=== PATIENT | female | born 1965 | race Caucasian/White ===

== ENCOUNTER 2016-12-20 10:17 | Emergency (ER) | payer SELFPAY ==
[2016-12-20 10:17] VITALS: BMI 31.1
[2016-12-20 10:28] VITALS: TEMP 98.7; O2SAT 99
[2016-12-20] MEDS ORDERED: Sodium Chloride 0.9% 1,000 ML IV STA (10:45)
[2016-12-20 11:16] LABS: BASO % 0.1 % (0.0-2.0); EOS # 0.1 K/uL (0.0-0.7); EOS % 0.5 % (0.0-4.0); HEMATOCRIT 42.7 % (34.0-47.0); LYMPH # 0.8 K/uL (1.0-4.3); LYMPH % 7.4 % (20.0-40.0); MEAN CELL VOLUME 83.5 fl (81.0-99.0); MEAN CORPUSCULAR HEMOGLOBIN 28.1 pg (27.0-31.0); MEAN CORPUSCULAR HGB CONC 33.7 g/dL (33.0-37.0); MEAN PLATELET VOLUME 9.5 fl (7.2-11.7); MONO # 0.3 K/uL (0.0-0.8); MONO % 2.8 % (0.0-10.0); NEUT # 9.6 K/uL (1.8-7.0); NEUT % 89.2 % (50.0-75.0); NRBC % 0.1 % (0.0-0.0); PLATELET COUNT 226 K/uL (130-400); WHITE BLOOD COUNT 10.8 K/uL (4.8-10.8)
[2016-12-20 11:22] LABS: RBC URINE 15 /hpf (0-3); URINE BACTERIA RARE (<OCC); URINE BILIRUBIN NEGATIVE (NEGATIVE); URINE BLOOD MODERATE (NEGATIVE); URINE COLOR YELLOW (YELLOW); URINE GLUCOSE (UA) NEG (Normal); URINE KETONE TRACE mg/dL (NEGATIVE); URINE LEUKOCYTE ESTERASE MOD Leu/uL (Negative); URINE PROTEIN 30 mg/dL (NEGATIVE); URINE UROBILINOGEN 0.2-1.0 mg/dL (0.2-1.0); WBC URINE 4 /hpf (0-5)
[2016-12-20 11:32] LABS: PARTIAL THROMBOPLASTIN TIME 31.9 Seconds (25.6-37.1)
[2016-12-20 11:34] LABS: ALB/GLOB RATIO 1.1 (1.0-2.1); ALKALINE PHOSPHATASE 152 U/L (38-126); ALT/SGPT 44 U/L (9-52); AST/SGOT 30 U/L (14-36); BILIRUBIN,TOTAL 0.5 mg/dl (0.2-1.3); BLOOD UREA NITROGEN 14 mg/dl (7-17); CARBON DIOXIDE 22 mmol/L (22-30); CHLORIDE 105 mmol/L (98-107); GFR AFRICAN-AMERICAN > 60; GLUCOSE,RANDOM 145 mg/dL (65-105); LIPASE 57 U/L (23-300); POTASSIUM 3.7 MMOL/L (3.6-5.0); SODIUM 143 mmol/l (132-148); TOTAL PROTEIN 8.7 G/DL (6.3-8.2)
[2016-12-20 14:13] LABS: EOSINOPHIL 1 % (0-7); NEUTROPHIL 88 % (42-75); TOTAL CELLS COUNTED 100
--- NOTE | 2016-12-20 15:03 | ED PDOC ---
HPI: Abdomen Time Seen by Provider: 12/20/16 10:36 Chief Complaint (Nursing): Abdominal Pain Chief Complaint (Provider): Abdominal Pain History Per: Patient History/Exam Limitations: no limitations (x) Onset/Duration Of Symptoms: Days (x2) Outside of [place] travel?: No Current Symptoms Are (Timing): Still Present Quality Of Discomfort: "Pain" Associated Symptoms: denies: Fever, Chest Pain Additional Complaint(s): 51 year old female presents to ED with complaints of abdominal pain x2 days and has a past medical history of cardiac disorders and DM (Type II). (+) nausea, vomiting, and diarrhea. (-) fever, chest pain, or SOB. PCP: Non CPH Past Medical History Reviewed: Historical Data, Nursing Documentation, Vital Signs Vital Signs: Last Vital Signs Temp 98.7 F 12/20/16 10:27 Pulse 89 12/20/16 15:13 Resp 18 12/20/16 15:13 BP 125/63 12/20/16 15:13 Pulse Ox 99 12/20/16 15:13 - Medical History PMH: Depression, HTN, Hypercholesterolemia, Hyperlipidemia, Migraine Denies: HIV, Chronic Kidney Disease - Surgical History Other surgeries: Hysterectomy - Family History Family History: States: [place], CAD, Diabetes, Hypertension - Home Medications Home Medications: Ambulatory Orders Medication Instructions Recorded Aspirin [Aspirin EC] 81 mg PO DAILY #0 ect 09/19/14 Atorvastatin [Lipitor] 40 mg PO DAILY #0 tab 09/19/14 Ergocalciferol (Vitamin D2) 50,000 unit PO Q7D #0 cap 09/19/14 [Vitamin D2] Fluticasone Nasal [Flonase] 2 spray MURALI DAILY PRN #0 spr 09/19/14 Lisinopril/Hydrochlorothiazide 1 tab PO DAILY #0 tab 09/19/14 [Lisinopril-Hctz 10-12.5 mg Tab] Loratadine [Claritin] 10 mg PO DAILY #0 tab 09/19/14 Meclizine Hydrochloride [Meclizine 12.5 mg PO BID #0 tab 09/19/14 HCl] Metoprolol Succinate XL [Toprol XL] 12.5 mg PO BID #0 tab 09/19/14 Paroxetine HCl [Paxil] 20 mg PO QAM #0 tab 09/19/14 Ranitidine HCl 150 mg PO BID #0 tab 09/19/14 SUMAtriptan succinate [Imitrex Tab] 100 mg PO DAILY PRN #0 tab 09/19/14 Famotidine [Pepcid] 20 mg PO BID #20 tab 12/20/16 Ondansetron [Zofran Odt] 4 mg PO Q8H PRN #15 odt 12/20/16 - Allergies Allergies/Adverse Reactions: Allergies Allergy/AdvReac Type Severity Reaction Status Date / Time No Known Allergies Allergy Verified 09/16/14 19:26 Review of Systems ROS Statement: Except As Marked, All Systems Reviewed And Found Negative Constitutional: Negative for: Fever Cardiovascular: Negative for: Chest Pain Respiratory: Negative for: Shortness of Breath Gastrointestinal: Positive for: Nausea, Vomiting, Abdominal Pain Physical Exam - Reviewed Nursing Documentation Reviewed: Yes Vital Signs Reviewed: Yes - Physical Exam Appears: Positive for: Non-toxic, No Acute Distress Head Exam: Positive for: ATRAUMATIC Skin: Positive for: Normal Color, Warm, Dry Eye Exam: Positive for: Normal appearance ENT: Positive for: Normal ENT Inspection Cardiovascular/Chest: Positive for: Regular Rate, Rhythm. Negative for: Murmur Respiratory: Positive for: Normal Breath Sounds. Negative for: Respiratory Distress Gastrointestinal/Abdominal: Positive for: Soft, Tenderness (epigastric tenderness). Negative for: Guarding, Rebound Back: Positive for: Normal Inspection Extremity: Positive for: Normal ROM. Negative for: Deformity Neurologic/Psych: Positive for: Alert, Oriented. Negative for: Motor/Sensory Deficits - Laboratory Results Result Diagrams: 12/20/16 11:00 12/20/16 11:00 - ECG Interpretation Of ECG: NSR @ 83, no ST-T changes. O2 Sat by Pulse Oximetry: 99 (RA) Pulse Ox Interpretation: Normal Medical Decision Making Medical Decision Makin Initial impression: gastroenteritis, gastritis, cholelithiasis Initial plan: * EKG * Labs * Lipase * PTT/PT * Morphine 2mg IV * NS IV * Zofran Inj 4mg IV * UA * US ABDOMEN * Re-eval 1517 Upon re-evaluation, patient is feeling much better and is medically stable and ready for discharge. Counseling has been provided and patient is in agreement. Return if symptoms persist or acutely worsen. Scribe Attestation: Documented by Gabbi Lake acting as a scribe for Keyla Briceno MD. MD Arredondo Attestation: All medical record entries made by the Maria Elena were at my direction and personally dictated by me. I have reviewed the chart and agree that the record accurately reflects my personal performance of the history, physical exam, medical decision making, and the department course for this patient. I have also personally directed, reviewed, and agree with the discharge instructions and disposition. Disposition - Clinical Impression Clinical Impression: Gastroenteritis - Patient ED Disposition Is Patient to be Admitted: No Counseled Patient/Family Regarding: Studies Performed, Diagnosis - Disposition Referrals: [facility] [Outside] [facility] [Outside] Disposition: Routine/Home Disposition Time: 15:01 Condition: STABLE Prescriptions: Famotidine [Pepcid] 20 mg PO BID #20 tab Ondansetron [Zofran Odt] 4 mg PO Q8H PRN #15 odt PRN Reason: Nausea/Vomiting Instructions: Gastroenteritis (ED) Print Language: POLISH
[2016-12-20 15:14] VITALS: BP 125/63; PULSE 89; RESP 18
--- NOTE | 2016-12-20 15:38 | US ---
HISTORY: Epigastric pain, vomiting COMPARISON: None. TECHNIQUE: Sonographic evaluation of the right upper quadrant of the abdomen. FINDINGS: LIVER: Measures approximately 16 cm in CC dimension. Smooth contour and normal echogenicity of the liver parenchyma. No mass. No intrahepatic bile duct dilatation. GALLBLADDER: Unremarkable. No gallstones. No evidence of pericholecystic fluid collection or sonographic Milton sign COMMON BILE DUCT: Measures 2.2 mm. No stones. No dilatation. PANCREAS: Unremarkable as visualized. Note that the distal pancreatic tail poorly seen due to body habitus and bowel gas. No mass. No ductal dilatation. RIGHT KIDNEY: Measures approximately 10.0 x 5.4 x 5.0 cm in length. Normal echogenicity. No calculus, mass, or hydronephrosis. AORTA: Not visualized due to bowel gas and body habitus. IVC: Unremarkable. OTHER FINDINGS: None . IMPRESSION: Findings consistent with fatty hepatic infiltration.
--- NOTE | 2016-12-21 16:50 | CARD ---
APPROVED REPORT EKG Measurement Heart [id number] <Conclusion> Normal sinus rhythm Possible Left atrial enlargement Cannot rule out Inferior infarct, age undetermined Abnormal ECG
== END 2016-12-20 15:37 | disposition home or self-care (01) ==
LOC: H.ER 10:17
DX: K52.9 Noninfective gastroenteritis and colitis, unspecified (principal); R11.2 Nausea with vomiting, unspecified; E11.9 Type 2 diabetes mellitus without complications; I10 Essential (primary) hypertension
CPT/HCPCS: 76705; 80053; 81003; 81025; 83690; 85025; 85610; 85730; 93005; 96360; 99283; J2270; J2405; J7040

== ENCOUNTER 2017-04-23 20:07 | Observation (INO) | payer OTHER ==
[2017-04-23 20:08] VITALS: BMI 31.1
--- NOTE | 2017-04-23 20:43 | ED PDOC ---
HPI: Chest Pain Time Seen by Provider: 04/23/17 20:29 Chief Complaint (Nursing): Chest Pain History Per: Patient History/Exam Limitations: no limitations Current Symptoms Are (Timing): Still Present Quality: Tightness Associated Symptoms: Nausea Additional Complaint(s): Hx of CAD, DE, HTN, HLD, DM p/w CP, states it started 1-2 hours ago while at rest, states that she often gets pain in her chest when she is "pre- occupied". States she also has bilateral upper back pain. No diaphoresis. States pain is worse when she takes in a deep breath. No recent travel, immobilization, surgery. - Risk Factors TAD Risk Factors: Pos: Hypertension Past Medical History Reviewed: Historical Data, Nursing Documentation, Vital Signs Vital Signs: Last Vital Signs Temp 98.7 F 04/23/17 20:17 Pulse 82 04/23/17 20:17 Resp 20 04/23/17 20:17 BP 148/109 H 04/23/17 20:17 Pulse Ox 99 04/23/17 20:47 - Medical History PMH: Depression, HTN, Hypercholesterolemia, Hyperlipidemia, Migraine Denies: HIV, Chronic Kidney Disease - Family History Family History: States: [place], CAD, Diabetes, Hypertension - Home Medications Home Medications: Ambulatory Orders Medication Instructions Recorded Aspirin [Aspirin EC] 81 mg PO DAILY #0 ect 09/19/14 Atorvastatin [Lipitor] 40 mg PO DAILY #0 tab 09/19/14 Ergocalciferol (Vitamin D2) 50,000 unit PO Q7D #0 cap 09/19/14 [Vitamin D2] Fluticasone Nasal [Flonase] 2 spray MURALI DAILY PRN #0 spr 09/19/14 Lisinopril/Hydrochlorothiazide 1 tab PO DAILY #0 tab 09/19/14 [Lisinopril-Hctz 10-12.5 mg Tab] Loratadine [Claritin] 10 mg PO DAILY #0 tab 09/19/14 Meclizine Hydrochloride [Meclizine 12.5 mg PO BID #0 tab 09/19/14 HCl] Metoprolol Succinate XL [Toprol XL] 12.5 mg PO BID #0 tab 09/19/14 Paroxetine HCl [Paxil] 20 mg PO QAM #0 tab 09/19/14 Ranitidine HCl 150 mg PO BID #0 tab 09/19/14 SUMAtriptan succinate [Imitrex Tab] 100 mg PO DAILY PRN #0 tab 09/19/14 Famotidine [Pepcid] 20 mg PO BID #20 tab 12/20/16 Ondansetron [Zofran Odt] 4 mg PO Q8H PRN #15 odt 12/20/16 - Allergies Allergies/Adverse Reactions: Allergies Allergy/AdvReac Type Severity Reaction Status Date / Time No Known Allergies Allergy Verified 09/16/14 19:26 RAND Risk Score for UA/NSTEMI - RAND Risk Score Age > 64: NO 3 or more CAD Risk Factors: YES Aspirin use in past 7 days: YES EKG ST changes greater than 0.5mm: NO RAND Score: 2 Risk %: 8% Curb-65 Severity Score - CURB-65 Severity Score Confusion: No Bun >19mg/dl (>7mmol/L): No Respiratory Rate greater than/equal to 30: No Systolic BP <90 or Diastolic BP less than/equal 60mmHg: No Age >64: No Curb-65 Score: 0 Percentage 30-day mortality: 0.6% Wells Criteria for PE - Wells Criteria for Pulmonary Embolism Clinical Signs and Symptoms of DVT: No P.E is #1 Diagnosis, or Equally Likely: No Heart Rate >100: No Immobilization at least 3 days;Surgery previous 4 weeks: No Previous, objectively diagnosed PE or DVT: No Hemoptysis: No Malignancy w/treatment within 6 months, or palliative: No Total Score: 0 Review of Systems ROS Statement: Except As Marked, All Systems Reviewed And Found Negative Cardiovascular: Positive for: Chest Pain Respiratory: Positive for: Shortness of Breath Physical Exam - Reviewed Nursing Documentation Reviewed: Yes Vital Signs Reviewed: Yes - Physical Exam Appears: Positive for: Well, Non-toxic, Uncomfortable Head Exam: Positive for: ATRAUMATIC, NORMAL INSPECTION, NORMOCEPHALIC Skin: Positive for: Normal Color, Warm, DRY Eye Exam: Positive for: EOMI, Normal appearance, PERRL ENT: Positive for: Normal ENT Inspection Neck: Positive for: Normal, Painless ROM Cardiovascular/Chest: Positive for: Regular Rate, Rhythm Respiratory: Positive for: CNT, Normal Breath Sounds Gastrointestinal/Abdominal: Positive for: Normal Exam, Bowel Sounds, Soft Back: Positive for: Normal Inspection Extremity: Positive for: Normal ROM Neurologic/Psych: Positive for: Alert, Oriented - Laboratory Results Result Diagrams: 04/23/17 20:43 04/23/17 20:43 - ECG ECG Rhythm: Positive for: Normal QRS, ST/T Changes (TWI ) O2 Sat by Pulse Oximetry: 99 Pulse Ox Interpretation: Normal Medical Decision Making Medical Decision Making: Hx of CAD, DE, HTN, HLD, DM p/w CP and SOB -patient high risk for cardiac event, however story of CP nonexertional, EKG unchanged from 2015, no active STEMI -will check cardiac biomarkers and likely admit for Obs and r/o ACS 930PM: Pt. reports that she's feeling much better after toradol. Given hx of CAD, DE, and significant risk factors, will admit for r/o ACS. Will admit to Dr. Deluna. Disposition - Clinical Impression Clinical Impression: Chest pain - Patient ED Disposition Is Patient to be Admitted: Yes - Disposition Disposition Time: 21:30 Condition: STABLE Forms: [facility] (Egyptian)
[2017-04-23 20:55] LABS: BASO % 0.4 % (0.0-2.0); EOS # 0.2 K/uL (0.0-0.7); EOS % 1.6 % (0.0-4.0); HEMATOCRIT 36.9 % (34.0-47.0); LYMPH % 36.6 % (20.0-40.0); MEAN CELL VOLUME 84.2 fl (81.0-99.0); MEAN CORPUSCULAR HEMOGLOBIN 28.1 pg (27.0-31.0); MEAN CORPUSCULAR HGB CONC 33.4 g/dL (33.0-37.0); MEAN PLATELET VOLUME 9.2 fl (7.2-11.7); MONO # 0.4 K/uL (0.0-0.8); MONO % 3.9 % (0.0-10.0); NEUT # 6.3 K/uL (1.8-7.0); NEUT % 57.5 % (50.0-75.0); NRBC % 0.1 % (0.0-0.0); RED CELL DISTRIBUTION WIDTH 13.7 % (11.5-14.5)
[2017-04-23 21:16] LABS: PARTIAL THROMBOPLASTIN TIME 33.7 Seconds (25.6-37.1)
[2017-04-23 21:18] LABS: BLOOD UREA NITROGEN 12 mg/dl (7-17); CALCIUM 9.7 mg/dL (8.4-10.2); CARBON DIOXIDE 29 mmol/L (22-30); CHLORIDE 104 mmol/L (98-107); GFR AFRICAN-AMERICAN > 60; GLUCOSE,RANDOM 164 mg/dL (65-105); POTASSIUM 4.1 MMOL/L (3.6-5.0); SODIUM 143 mmol/l (132-148)
--- NOTE | 2017-04-23 22:32 | CP.PCM.HP ---
History of Present Illness - History of Present Illness History of Present Illness: PCP: None Chief Complaint: Chest Pain The patient was seen and examined in the ED HPI: 51 years old [place]ian female with hx of HTN, HLD, DM and family hx of CAD comes with 2 hours of sharp, continuous left chest pain , radiating to the left shoulder and left back and increases with respiration and on attempting to sit up from a lying position and began while she was cooking. She took no medication for this pain. No nausea, vomits, diaphoresis, headache nor dizziness. PMH: Depression; HTN; HLD; Migraine; DM II PSH: Hysterectomy SH: Never smoked; No Alcohol nor Illegal drug use; Live with her FH: States: [place], CAD, Diabetes, Hypertension Allergies: NKDA Medication: Not taking medications at present. Present on Admission - Present on Admission Any Indicators Present on Admission: No History of DVT/PE: No History of Uncontrolled Diabetes: No Urinary Catheter: No Decubitus Ulcer Present: No Review of Systems - Constitutional Constitutional: absent: Anorexia, Chills, Fever, Headache, Night Sweats - EENT Eyes: Requires Corrective Lenses. absent: Diplopia, Floaters, Photophobia, Sees Flashes Ears: absent: Decreased Hearing, Ear Discharge, Ear Pain, Dizziness Nose/Mouth/Throat: absent: Epistaxis, Nasal Congestion, Nasal Discharge - Cardiovascular Cardiovascular: Chest Pain, Dyspnea. absent: Edema, Leg Edema - Respiratory Respiratory: Dyspnea. absent: Cough - Gastrointestinal Gastrointestinal: absent: Abdominal Pain, Constipation, Diarrhea, Nausea, Vomiting - Genitourinary Genitourinary: absent: Dysuria, Flank Pain, Hematuria - Musculoskeletal Additional comments: Pain to both feet - Integumentary Integumentary: absent: Pruritus, Rash, Skin Ulcer, Sores, Striae, Swelling - Neurological Neurological: absent: Confusion, Dizziness, Focal Weakness, Headaches, Weakness - Psychiatric Psychiatric: Depression. absent: Anxiety, Panic Attacks - Endocrine Endocrine: absent: Palpitations, Polydipsia, Polyphagia, Polyuria - Hematologic/Lymphatic Hematologic: absent: Easy Bleeding, Easy Bruising Past Patient History - Infectious Disease Hx of Infectious Diseases: None - Past Medical History & Family History Past Medical History?: Yes - Past Social History Smoking Status: Never Smoked Chewing Tobacco Use: No Cigar Use: No Alcohol: None Drugs: Denies Home Situation {Lives}: With Family - CARDIAC Hx Hypercholesterolemia: Yes Hx Hypertension: Yes - PULMONARY Hx Respiratory Disorders: No - NEUROLOGICAL Hx Migraine: Yes - HEENT Hx HEENT Problems: No Other/Comment: vision-wears eyeglasses - RENAL Hx Chronic Kidney Disease: No - ENDOCRINE/METABOLIC Hx Endocrine Disorders: Yes Hx Diabetes Mellitus Type 2: Yes Other/Comment: IDDM - HEMATOLOGICAL/ONCOLOGICAL Hx Blood Disorders: No Hx Human Immunodeficiency Virus (HIV): No - INTEGUMENTARY Hx Dermatological Problems: No - MUSCULOSKELETAL/RHEUMATOLOGICAL Hx Musculoskeletal Disorders: No Hx Falls: No - GASTROINTESTINAL Hx Gastrointestinal Disorders: No - GENITOURINARY/GYNECOLOGICAL Hx Genitourinary Disorders: No - PSYCHIATRIC Hx Depression: Yes - SURGICAL HISTORY Hx Surgeries: Yes Hx Hysterectomy: Yes Other/Comment: HYSTERECTOMY 2004 - ANESTHESIA Hx Anesthesia: Yes Hx Anesthesia Reactions: No Hx Malignant Hyperthermia: No Meds Allergies/Adverse Reactions: Allergies Allergy/AdvReac Type Severity Reaction Status Date / Time No Known Allergies Allergy Verified 09/16/14 19:26 Physical Exam - Head Exam Head Exam: ATRAUMATIC, NORMAL INSPECTION, NORMOCEPHALIC - Eye Exam Eye Exam: EOMI, Normal appearance Pupil Exam: NORMAL ACCOMODATION, PERRL - ENT Exam ENT Exam: Mucous Membranes Moist, Normal Exam - Neck Exam Neck exam: Positive for: Full Rom, Normal Inspection. Negative for: Lymphadenopathy, Tenderness - Respiratory Exam Respiratory Exam: Clear to Auscultation Bilateral. absent: Rales, Rhonchi, Wheezes Additional comments: Chest wall with no sign of trauma, but painful on palpation and on elevation of the left arm. - Cardiovascular Exam Cardiovascular Exam: REGULAR RHYTHM, RRR, +S1, +S2. absent: Gallop, JVD - GI/Abdominal Exam GI & Abdominal Exam: Normal Bowel Sounds, Soft. absent: Organomegaly, Tenderness - Rectal Exam Rectal Exam: Deferred - Back Exam Back exam: NORMAL INSPECTION Additional comments: Pain to bilateral upper back on palpation - Neurological Exam Neurological exam: Alert, CN II-XII Intact, Oriented x3, Reflexes Normal - Psychiatric Exam Psychiatric exam: Normal Affect, Normal Mood - Skin Skin Exam: Dry, Intact, Normal Color, Warm Results - Vital Signs Recent Vital Signs: Last Vital Signs Temp 98.7 F 04/23/17 20:17 Pulse 79 04/23/17 22:25 Resp 18 04/23/17 22:25 BP 143/78 04/23/17 22:25 Pulse Ox 98 04/23/17 22:25 - Labs Result Diagrams: 04/23/17 20:43 04/23/17 20:43 Labs: Laboratory Results - last 24 hr 04/23/17 04/23/17 04/23/17 20:43 20:43 20:43 WBC 11.0 H RBC 4.38 Hgb 12.3 D Hct 36.9 MCV 84.2 MCH 28.1 MCHC 33.4 RDW 13.7 Plt Count 210 MPV 9.2 Neut % (Auto) 57.5 Lymph % (Auto) 36.6 [place] % (Auto) 3.9 Eos % (Auto) 1.6 Baso % (Auto) 0.4 Neut # 6.3 Lymph # 4.0 [place] # 0.4 Eos # 0.2 Baso # 0.0 PT 11.4 INR 1.0 APTT 33.7 Sodium 143 Potassium 4.1 Chloride 104 Carbon Dioxide 29 Anion Gap 14 BUN 12 Creatinine 0.7 Est GFR ( Amer) > 60 Est GFR (Non-Af Amer) > 60 Random Glucose 164 H Calcium 9.7 Troponin I < 0.0120 - EKG Data EKG comments: NSR 83/min no change from EKG of 12/20/16 - Imaging and Cardiology CT scan - chest Additional comment: No infiltrate Assessment & Plan - Assessment and Plan (Free Text) Assessment: #. Chest Pain #. HTN #. DM II #. Hx of Depression Plan: 51 years old [place] female with hx of HTN, HLD, DM and family hx of CAD comes with 2 hours of sharp, continuous left chest pain , radiating to the left shoulder and left back and increases with respiration and on attempting to sit up from a lying position and began while she was cooking. She took no medication for this pain. No nausea, vomits, diaphoresis, headache nor dizziness. #. Chest Pain, Pleuritic, reproducible in patient with family hx of heart disease. r/o ACS - Consult Cardiology Dr Cueto - Serial Troponin - serial EKG - ECHO for Wall motion - pain management with Toradol - ASA - Lipitor - Metoprolol #. HTN controlled - Metoprolol - follow blood Pressures #. DM II - Regular Insulin sliding scale according to Accucheck - HbA1c #. Stress Ulcer prophylaxis with Pepcid #. DVT Prophylaxis with Lovenox #. Code Status: Full - Date & Time Date: 04/23/17 Time: 22:32
[2017-04-24] MEDS ORDERED: Enoxaparin 40 mg Syringe SC SCH (09:00)
[2017-04-24 09:10] LABS: THYROID STIMULATING HORMONE 2.96 mIU/ML (0.46-4.68)
--- NOTE | 2017-04-24 10:14 | CP.PCM.DIS ---
Provider - Provider Date of Admission: 04/23/17 21:37 Attending physician: Kobe Deluna Time Spent in preparation of Discharge (in minutes): 15 Hospital Course - Lab Results Lab Results: Most Recent Lab Values WBC 11.0 K/uL (4.8-10.8) H 04/23/17 20:43 RBC 4.38 Mil/uL (3.80-5.20) 04/23/17 20:43 Hgb 12.3 g/dL (12.0-16.0) D 04/23/17 20:43 Hct 36.9 % (34.0-47.0) 04/23/17 20:43 MCV 84.2 fl (81.0-99.0) 04/23/17 20:43 MCH 28.1 pg (27.0-31.0) 04/23/17 20:43 MCHC 33.4 g/dL (33.0-37.0) 04/23/17 20:43 RDW 13.7 % (11.5-14.5) 04/23/17 20:43 Plt Count 210 K/uL (130-400) 04/23/17 20:43 MPV 9.2 fl (7.2-11.7) 04/23/17 20:43 Neut % (Auto) 57.5 % (50.0-75.0) 04/23/17 20:43 Lymph % (Auto) 36.6 % (20.0-40.0) 04/23/17 20:43 [place] % (Auto) 3.9 % (0.0-10.0) 04/23/17 20:43 Eos % (Auto) 1.6 % (0.0-4.0) 04/23/17 20:43 Baso % (Auto) 0.4 % (0.0-2.0) 04/23/17 20:43 Neut # 6.3 K/uL (1.8-7.0) 04/23/17 20:43 Lymph # 4.0 K/uL (1.0-4.3) 04/23/17 20:43 [place] # 0.4 K/uL (0.0-0.8) 04/23/17 20:43 Eos # 0.2 K/uL (0.0-0.7) 04/23/17 20:43 Baso # 0.0 K/uL (0.0-0.2) 04/23/17 20:43 PT 11.4 Seconds (9.8-13.1) 04/23/17 20:43 INR 1.0 (0.9-1.2) 04/23/17 20:43 APTT 33.7 Seconds (25.6-37.1) 04/23/17 20:43 Sodium 143 mmol/l (132-148) 04/23/17 20:43 Potassium 4.1 MMOL/L (3.6-5.0) 04/23/17 20:43 Chloride 104 mmol/L (98-107) 04/23/17 20:43 Carbon Dioxide 29 mmol/L (22-30) 04/23/17 20:43 Anion Gap 14 (10-20) 04/23/17 20:43 BUN 12 mg/dl (7-17) 04/23/17 20:43 Creatinine 0.7 mg/dL (0.7-1.2) 04/23/17 20:43 Est GFR ( Amer) > 60 04/23/17 20:43 Est GFR (Non-Af Amer) > 60 04/23/17 20:43 Random Glucose 164 mg/dL (65-105) H 04/23/17 20:43 Calcium 9.7 mg/dL (8.4-10.2) 04/23/17 20:43 Troponin I < 0.0120 ng/mL (0.00-0.120) 04/24/17 09:15 Triglycerides 131 mg/DL (0-149) D 04/24/17 06:00 Cholesterol 186 mg/dL (0-199) 04/24/17 06:00 LDL Cholesterol Direct 142 mg/dL (0-129) H 04/24/17 06:00 HDL Cholesterol 32 MG/DL (30-70) 04/24/17 06:00 TSH 3rd Generation 2.96 mIU/ML (0.46-4.68) 04/24/17 06:00 - Hospital Course Hospital Course: 51 years old [place] female with hx of HTN, HLD ,family hx of CAD, not compliant with medications( has not been taking any meds for more than 6 months ) , not following with any physician or clinic, came with 2 hours of sharp, continuous left chest pain , radiating to the left shoulder and left back and increased with respiration and on attempting to sit up from a lying position and began while she was cooking. She took no medication for this pain. No nausea , vomits, diaphoresis, headache nor dizziness. She wsa placed under observation in telemetry for chest pain to rule out ACs. Troponins were cycled and reported negative x 3. EKG showed no St-T wave changes and Echo showed normal EF and wall motion. patient is hemodynamically stable and chest pain resolved ACs ruled out. Will discharge patient home Counselled on compliance with treatment for her HTN and dyslipidemia.Advised patient to follow up with [facility] . Counselled on diet and exercise will discharge patient home Prescriptions for ASa 81 mg po QD, Lisinopril 5 mg pO QD and Atorvastatin 20 mg po daily provided. all questions answered. Patient agrees with plan of discharge. Dx atypical chest pain Hypertension dyslipidemia overweight BMI 36 Discharge Exam - Head Exam Head Exam: ATRAUMATIC, NORMAL INSPECTION, NORMOCEPHALIC - Eye Exam Eye Exam: EOMI, Normal appearance, PERRL Pupil Exam: NORMAL ACCOMODATION, PERRL - ENT Exam ENT Exam: Mucous Membranes Moist, Normal Exam - Neck Exam Neck exam: Full Rom, Normal Inspection - Respiratory Exam Respiratory Exam: Clear to PA & Lateral, NORMAL BREATHING PATTERN. absent: Rales, Rhonchi, Wheezes - Cardiovascular Exam Cardiovascular Exam: REGULAR RHYTHM, RRR, +S1, +S2. absent: JVD - GI/Abdominal Exam GI & Abdominal Exam: Normal Bowel Sounds, Soft. absent: Distended, Guarding, Rebound, Tenderness - Rectal Exam Rectal Exam: Deferred - Extremities Exam Extremities exam: normal capillary refill, normal inspection, pedal pulses present - Back Exam Back exam: NORMAL INSPECTION - Neurological Exam Neurological exam: Alert, CN II-XII Intact, Oriented x3, Reflexes Normal - Psychiatric Exam Psychiatric exam: Normal Affect, Normal Mood - Skin Skin Exam: Dry, Intact, Normal Color, Warm Discharge Plan - Discharge Medications Prescriptions: Aspirin 81 mg PO DAILY #30 tab.chew Atorvastatin [Lipitor] 20 mg PO DAILY #30 tab Lisinopril [Prinivil] 5 mg PO DAILY #30 tablet - Follow Up Plan Condition: STABLE Disposition: HOME/ ROUTINE Patient education suggested?: Yes Instructions: Chest Pain (DC) Referrals: [facility] [Outside]
--- NOTE | 2017-04-24 12:10 | CARD ---
APPROVED REPORT EXAM: Two-dimensional and M-mode echocardiogram with Doppler and color Doppler. Other Information Quality : GoodRhythm : NSR INDICATION Chest Pain 2D DIMENSIONS Left Atrium (2D)3.76 (1.6-4.0cm)IVSd1.11 (0.7-1.1cm) Aortic Root (2D)2.92 (2.0-3.7cm)LVDd4.01 (3.9-5.9cm) LVOT Diameter1.86 (1.8-2.4cm)PWd0.72 (0.7-1.1cm) IVSs1.51 (0.8-1.2cm)LVDs2.69 (2.5-4.0cm) FS (%) 33.0 %PWs1.07 (0.8-1.2cm) M-Mode DIMENSIONS Left Atrium (MM)3.59 (2.5-4.0cm)IVSd1.14 (0.7-1.1cm) Aortic Root3.02 (2.2-3.7cm)LVDd4.48 (4.0-5.6cm) Aortic Cusp Exc.1.39 (1.5-2.0cm)PWd1.21 (0.7-1.1cm) IVSs1.08 cmFS (%) 24 % LVDs3.40 (2.0-3.8cm)PWs1.40 cm Mitral Valve MV E Lnokbwxv45.6cm/sMV DECEL [id number] A Pimkmzau79.4cm/s MV LAQ82gsC/A ratio1.1MVA (PHT)4.69cm2 TDI Lateral E' Peak V9.94cm/sMedial E' Peak V9.37cm/sE/Lateral E'7.4 E/Medial E'7.9 Pulmonary Valve PV Peak Qcxuevzo05.1cm/s Tricuspid Valve TR Peak Zxyoedrg838kq/sRAP QCMFCEZT69wgPsCT Peak Gr.20mmHg [id number] LEFT VENTRICLE The left ventricle is normal size. There is normal left ventricular wall thickness. The left ventricular function is normal. The left ventricular ejection fraction is within the normal range. The Ejection Fraction is 60-65%. There is normal LV segmental wall motion. The left ventricular diastolic function is normal. No left ventricle thrombus noted on this study. There is no mass noted in the left ventricle. RIGHT VENTRICLE The right ventricle is normal size. There is normal right ventricular wall thickness. The right ventricular systolic function is normal. ATRIA The left atrium size is normal. The right atrium size is normal. The interatrial septum is intact with no evidence for an atrial septal defect. AORTIC VALVE The aortic valve is normal in structure and function. No aortic regurgitation is present. There is no aortic valvular stenosis. There is no aortic valvular vegetation. MITRAL VALVE The mitral valve is normal in structure and function. There is no evidence of mitral valve prolapse. There is no mitral valve stenosis. There is no mitral valve regurgitation noted. TRICUSPID VALVE The tricuspid valve is normal in structure and function. There is no tricuspid valve regurgitation noted. There is no tricuspid valve prolapse or vegetation. There is no tricuspid valve stenosis. PULMONIC VALVE The pulmonary valve is normal in structure and function. There is no pulmonic valvular regurgitation. There is no pulmonic valvular stenosis. GREAT VESSELS The aortic root is normal in size. The IVC is normal in size and collapses >50% with inspiration. PERICARDIAL EFFUSION The pericardium appears normal. There is no pleural effusion. <Conclusion> The left ventricle is normal size. The left ventricular function is normal. The left ventricular ejection fraction is within the normal range. The Ejection Fraction is 60-65%.
[2017-04-24 12:17] VITALS: BP 127/70; PULSE 65; RESP 20; TEMP 98.2; O2SAT 97
--- NOTE | 2017-04-24 12:22 | CARD ---
APPROVED REPORT EKG Measurement Heart [id number] VA [id number] [id number] <Conclusion> Normal sinus rhythm Nonspecific T wave abnormality Abnormal ECG
--- NOTE | 2017-04-24 13:03 | RAD ---
HISTORY: cp, sob COMPARISON: No prior. TECHNIQUE: Chest PA and lateral FINDINGS: LUNGS: No active pulmonary disease. PLEURA: No significant pleural effusion identified. No pneumothorax apparent. CARDIOVASCULAR: Normal. OSSEOUS STRUCTURES: No significant abnormalities. VISUALIZED UPPER ABDOMEN: Normal. OTHER FINDINGS: None. IMPRESSION: No active disease.
== END 2017-04-24 15:20 | disposition home or self-care (01) ==
LOC: H.ER 20:07 → H.ERHOLD 21:37 → H.TEL 23:30
PROVIDERS: ADMIT Internal Medicine; ATTEND Internal Medicine
DX: R07.89 Other chest pain (principal); E11.9 Type 2 diabetes mellitus without complications; E66.3 Overweight; Z68.36 Body mass index [BMI] 36.0-36.9, adult; E78.00 Pure hypercholesterolemia, unspecified; E78.5 Hyperlipidemia, unspecified; I10 Essential (primary) hypertension; I25.10 Atherosclerotic heart disease of native coronary artery without angina pectoris; Z79.4 Long term (current) use of insulin; Z79.82 Long term (current) use of aspirin; Z90.710 Acquired absence of both cervix and uterus; Z91.14 Patient's other noncompliance with medication regimen; F32.9 Major depressive disorder, single episode, unspecified; G43.909 Migraine, unspecified, not intractable, without status migrainosus; M54.6 Pain in thoracic spine
CPT/HCPCS: 36415; 71020; 80048; 80061; 81025; 82948; 84443; 84484; 85025; 85610; 85730; 93005; 93306; 96374; 99285; G0378; J1650; J1885

== ENCOUNTER 2018-01-10 17:56 | Emergency (ER) | payer OTHER, SELFPAY ==
[2018-01-10 17:56] VITALS: BMI 31.1
[2018-01-10] MEDS ORDERED: Sodium Chloride 0.9% 1,000 ML IV STA (19:39)
[2018-01-10 20:14] LABS: BASO % 0.3 % (0.0-2.0); EOS % 0.2 % (0.0-4.0); HEMOGLOBIN 13.1 g/dL (12.0-16.0); LYMPH % 20.5 % (20.0-40.0); MEAN CELL VOLUME 83.7 fl (81.0-99.0); MEAN CORPUSCULAR HEMOGLOBIN 27.9 pg (27.0-31.0); MEAN CORPUSCULAR HGB CONC 33.4 g/dL (33.0-37.0); MEAN PLATELET VOLUME 9.1 fl (7.2-11.7); MONO # 0.4 K/uL (0.0-0.8); MONO % 3.9 % (0.0-10.0); NEUT # 7.3 K/uL (1.8-7.0); NEUT % 75.1 % (50.0-75.0); RBC 4.7 Mil/uL (3.80-5.20); RED CELL DISTRIBUTION WIDTH 14.2 % (11.5-14.5); WHITE BLOOD COUNT 9.8 K/uL (4.8-10.8)
[2018-01-10 20:25] LABS: ALB/GLOB RATIO 1.2 (1.0-2.1); ALBUMIN 4.2 g/dL (3.5-5.0); ALT/SGPT 40 U/L (9-52); AST/SGOT 22 U/L (14-36); BLOOD UREA NITROGEN 13 mg/dl (7-17); CALCIUM 9.4 mg/dL (8.4-10.2); GFR AFRICAN-AMERICAN > 60; GFR NON-AFRICAN AMERICAN > 60; LIPASE 89 U/L (23-300)
[2018-01-10 20:31] LABS: SQUAMOUS EPITHIAL 25 /hpf (0-5); URINE BILIRUBIN SMALL (NEGATIVE); URINE BLOOD NEGATIVE (NEGATIVE); URINE CLARITY CLOUDY (Clear); URINE COLOR AMBER (YELLOW); URINE GLUCOSE (UA) NEG (Normal); URINE LEUKOCYTE ESTERASE TRACE Leu/uL (Negative); URINE PROTEIN 100 mg/dL (NEGATIVE)
--- NOTE | 2018-01-10 20:33 | ED PDOC ---
HPI: Abdomen Time Seen by Provider: 01/10/18 19:10 Chief Complaint (Nursing): Abdominal Pain Chief Complaint (Provider): Abdominal pain History Per: Patient History/Exam Limitations: no limitations Onset/Duration Of Symptoms: Days (1) Outside of [place] travel?: No Current Symptoms Are (Timing): Still Present Location Of Pain/Discomfort: Diffuse Quality Of Discomfort: Burning, Pressure Associated Symptoms: Fever (tactile), Nausea, Vomiting, Diarrhea. denies: Back Pain, Chest Pain, Constipation Additional History Per: Patient Additional Complaint(s): 52yo female with history of diabetes, hypertnesion, comes to ER with complaints of abdominal pain and associated nausea, vomiting, diarrhea, and a subjective fever. Patient describes the pain as a burning and pressure like sensation. She reports she has had over 10 episodes of non-bilious, non-bloody vomiting and over 10 episodes of watery, non-bloody diarrhea. She denies any black or bloody stools, recent antibiotics use, recent foreign travels. Otherwise, patient has no other medical complaints. PMD: Dr. Ros Bowling Past Medical History Reviewed: Historical Data, Nursing Documentation, Vital Signs Vital Signs: Last Vital Signs Temp 98.9 F 01/10/18 18:14 Pulse 110 H 01/10/18 18:14 Resp 20 01/10/18 18:14 BP 117/67 01/10/18 18:14 Pulse Ox 100 01/10/18 22:28 - Medical History PMH: CAD, Depression, HTN, Hypercholesterolemia, Hyperlipidemia, Migraine Denies: HIV, Chronic Kidney Disease - Surgical History Other surgeries: Hysterectomy - Family History Family History: States: [place], CAD, Diabetes, Hypertension - Living Arrangements Living Arrangements: With Family - Social History Current smoker - smoking cessation education provided: No - Home Medications Home Medications: Ambulatory Orders Medication Instructions Recorded Aspirin 81 mg PO DAILY #30 tab.chew 04/24/17 Atorvastatin [Lipitor] 20 mg PO DAILY #30 tab 04/24/17 Lisinopril [Prinivil] 5 mg PO DAILY #30 tablet 04/24/17 Ciprofloxacin [Cipro] 500 mg PO BID 7 Days tab 01/10/18 Famotidine [Pepcid] 20 mg PO BID #20 tab 01/10/18 metroNIDAZOLE [Flagyl] 500 mg PO BID 7 Days tab 01/10/18 - Allergies Allergies/Adverse Reactions: Allergies Allergy/AdvReac Type Severity Reaction Status Date / Time No Known Allergies Allergy Verified 01/10/18 18:14 Review of Systems ROS Statement: Except As Marked, All Systems Reviewed And Found Negative Constitutional: Positive for: Fever (tactile) Cardiovascular: Negative for: Chest Pain Respiratory: Negative for: Shortness of Breath Gastrointestinal: Positive for: Vomiting, Abdominal Pain, Diarrhea. Negative for: Melena, Hematochezia, Hematemesis Physical Exam - Reviewed Nursing Documentation Reviewed: Yes Vital Signs Reviewed: Yes - Physical Exam Appears: Positive for: Non-toxic Head Exam: Positive for: ATRAUMATIC, NORMAL INSPECTION, NORMOCEPHALIC Skin: Positive for: Normal Color Eye Exam: Positive for: Normal appearance ENT: Positive for: Other (tacky mucus membrances) Neck: Positive for: Normal, Supple Cardiovascular/Chest: Positive for: Tachycardia Respiratory: Positive for: Normal Breath Sounds Gastrointestinal/Abdominal: Positive for: Soft, Tenderness (epigastric and left lower quadrant tenderness). Negative for: Guarding, Rebound Back: Positive for: Normal Inspection Extremity: Positive for: Normal ROM Neurologic/Psych: Positive for: Alert, Oriented - Laboratory Results Result Diagrams: 01/10/18 20:09 01/10/18 20:09 - ECG O2 Sat by Pulse Oximetry: 100 (RA) Pulse Ox Interpretation: Normal Medical Decision Making Medical Decision Making: A/P: 52yo female with history of diabetes and hypertnesion, presents with nausea , vomiting, diarrhea and abdominal pain - Patient is well appearing but is uncomfortable - Mild tachycarida suggestive of mild dehydration - Differential: gastroenteritis vs. galbladder disease vs. gastritis vs. diverticulitis vs. colitis vs. less likely appendicitis -- Labs -- Urinalysis -- CT Abdomen/Pelvis -- IV Fluids -- Pepcid 20mg IVP -- Reglan 10mg IVPB Time: 7 CT Abdomen/Pelvis FINDINGS: Lung bases: Bibasal atelectasis affects the lungs. ABDOMEN: Liver: The liver is diffusely decreased in density, compatible with hepatic steatosis. Gallbladder and bile ducts: The gallbladder is unremarkable. No biliary ductal dilatation. Pancreas: The pancreas is unremarkable. Spleen: The spleen is unremarkable. Adrenals: The adrenal glands are unremarkable. Kidneys and ureters: No hydronephrosis. No solid mass. Stomach and bowel: Contiguous wall thickening and hyperenhancement of the distal ileum, extending to the cecal valve compatible with infectious or inflammatory ileitis. No evidence of bowel obstruction. PELVIS: Appendix: The tip of the appendix is mildly distended to 0.9 cm. An appendicolith is noted in the proximal appendix. No definite periappendiceal inflammatory changes. Bladder: Unremarkable. No mass. Reproductive: There has been a hysterectomy. No adnexal cysts or masses are identified. ABDOMEN and PELVIS: Intraperitoneal space: Small amount of free fluid. No abscess or free air. Bones/joints: No acute osseous abnormality. Soft tissues: No soft tissue swelling. Vasculature: Unremarkable. No abdominal aortic aneurysm. Lymph nodes: Borderline enlarged right lower quadrant mesenteric lymph nodes. IMPRESSION: 1. Contiguous wall thickening and hyperenhancement of the distal ileum, extending to the ileocecal valve, compatible with infectious or inflammatory ileitis. 2. The tip of the appendix is mildly distended to 0.9 cm. An appendicolith is noted in the proximal appendix. No definite periappendiceal inflammatory changes; however, with this appearance, early appendicitis cannot be excluded. 3. Small amount of free fluid. No abscess or free air. 4. Borderline enlarged right lower quadrant mesenteric lymph nodes. Time: 2225 Case discussed with assembler surgical garment Sadie Way, who will evaluate patient at bedside. 11PM Case discussed with Dr. Stover who agrees that patient likely not having appendicitis. Pulse 78, patient well appearing, reports feeling much better Will give cipro/flagyl and have patient followup as outpatient Advised to return if pain worsens, especially in RLQ area, or of any other concerning symptoms develop. Scribe Attestation: Documented by Cornelia Zambrano, acting as a scribe for Uche Santiago MD Provider Scribe Attestation: All medical record entries made by the Scribe were at my direction and personally dictated by me. I have reviewed the chart and agree that the record accurately reflects my personal performance of the history, physical exam, medical decision making, and the department course for this patient. I have also personally directed, reviewed, and agree with the discharge instructions and disposition. Disposition - Clinical Impression Clinical Impression: Ileitis - Patient ED Disposition Is Patient to be Admitted: No - Disposition Referrals: Amna Lloyd ARNP [Advanced RN Practitioner] - Disposition: Routine/Home Disposition Time: 23:03 Condition: IMPROVED Prescriptions: Ciprofloxacin [Cipro] 500 mg PO BID 7 Days tab Famotidine [Pepcid] 20 mg PO BID #20 tab metroNIDAZOLE [Flagyl] 500 mg PO BID 7 Days tab Instructions: Nausea and Vomiting, Adult (DC), Microscopic Colitis, Gastritis, Ulcer and Gastritis Diet Forms: [employer] (Thai) Print Language: GEORGIAN
[2018-01-10] MEDS ORDERED: Sodium Chloride 0.9% 50 ML IV ONE (21:03)
[2018-01-10] MEDS ORDERED: Iohexol 300 100 ML IJ ONE (21:03)
--- NOTE | 2018-01-10 23:04 | CP.PCM.CON ---
History of Present Illness - History of Present Illness History of Present Illness: General surgery - Dr Stover 52 yo F w/ hx of HTN, DM, presenting w/ generalized abdominal pain, Nausea, Vomiting and Diarrhea x1day. Pt states the pain started last night around 10pm. She describes it as a sudden onset abdominal pain located throughout the abdomen, cramping/burning in nature and 8/10 when it started. She had associated nausea and vomited several times, she states every 5 minutes she was vomiting, yellow-tinged gastric fluid. Pt also admits to associated Diarrhea which she describes as light brown watery liquid stool, and this was also countless times over the past 24hrs. Pt states she ate fish yesterday but nothing abnormal from her usual diet. She denies any Fevers, Chills, Dysuria, Hematuria, Chest pain, SOB. PMH: HTN, DM PSH: Hysterectomy NKDA Pt was seen in the ED. Vitals stable and WNL. Labs reviewed, CBC/CMP all WNL. A CT abd/pelvis was done which showed thickened colon and terminal ileum consistent with colitis/ileitis, also seen was a mildly dilated appendix at 9mm with a small fecalith proximally, no fat stranding or wall enhancement. Surgery was consulted for possible appendicitis. Review of Systems - Review of Systems All systems: reviewed and no additional remarkable complaints except (as per HPI ) Past Patient History - Infectious Disease Hx of Infectious Diseases: None - Past Medical History & Family History Past Medical History?: Yes - Past Social History Smoking Status: Never Smoked - CARDIAC Hx Hypercholesterolemia: Yes Hx Hypertension: Yes - PULMONARY Hx Respiratory Disorders: No - NEUROLOGICAL Hx Migraine: Yes - HEENT Hx HEENT Problems: No Other/Comment: vision-wears eyeglasses - RENAL Hx Chronic Kidney Disease: No - ENDOCRINE/METABOLIC Hx Endocrine Disorders: Yes Hx Diabetes Mellitus Type 2: Yes Other/Comment: IDDM - HEMATOLOGICAL/ONCOLOGICAL Hx Human Immunodeficiency Virus (HIV): No - INTEGUMENTARY Hx Dermatological Problems: No - MUSCULOSKELETAL/RHEUMATOLOGICAL Hx Musculoskeletal Disorders: No Hx Falls: No - GASTROINTESTINAL Hx Gastrointestinal Disorders: No - GENITOURINARY/GYNECOLOGICAL Hx Genitourinary Disorders: No - PSYCHIATRIC Hx Depression: Yes - SURGICAL HISTORY Hx Surgeries: Yes Hx Hysterectomy: Yes Other/Comment: HYSTERECTOMY 2005 - ANESTHESIA Hx Anesthesia: Yes Hx Anesthesia Reactions: No Hx Malignant Hyperthermia: No Meds Allergies/Adverse Reactions: Allergies Allergy/AdvReac Type Severity Reaction Status Date / Time No Known Allergies Allergy Verified 01/10/18 18:14 Physical Exam - Constitutional Appears: Well, No Acute Distress - Head Exam Head Exam: ATRAUMATIC, NORMAL INSPECTION, NORMOCEPHALIC - Eye Exam Eye Exam: Normal appearance - Respiratory Exam Respiratory Exam: NORMAL BREATHING PATTERN. absent: Respiratory Distress - Cardiovascular Exam Cardiovascular Exam: REGULAR RHYTHM - GI/Abdominal Exam GI & Abdominal Exam: Soft, Tenderness (diffuse mild ttp, slightly more in lower quadrants and suprapubic). absent: Distended, Firm, Guarding, Hernia, Rebound, Rigid Additional comments: No peritoneal signs - Neurological Exam Neurological exam: Alert, Oriented x3 - Psychiatric Exam Psychiatric exam: Normal Affect, Normal Mood - Skin Skin Exam: Dry, Intact Results - Vital Signs Recent Vital Signs: Last Vital Signs Temp 98.9 F 01/10/18 18:14 Pulse 110 H 01/10/18 18:14 Resp 20 01/10/18 18:14 BP 117/67 01/10/18 18:14 Pulse Ox 100 01/10/18 22:28 - Labs Result Diagrams: 01/10/18 20:09 01/10/18 20:09 Labs: Laboratory Results - last 24 hr 01/10/18 01/10/18 01/10/18 19:39 20:09 20:09 WBC 9.8 RBC 4.70 Hgb 13.1 Hct 39.3 MCV 83.7 MCH 27.9 MCHC 33.4 RDW 14.2 Plt Count 217 MPV 9.1 Neut % (Auto) 75.1 H Lymph % (Auto) 20.5 [place] % (Auto) 3.9 Eos % (Auto) 0.2 Baso % (Auto) 0.3 Neut # (Auto) 7.3 H Lymph # (Auto) 2.0 [place] # (Auto) 0.4 Eos # (Auto) 0.0 Baso # (Auto) 0.0 Sodium 139 Potassium 3.5 L Chloride 101 Carbon Dioxide 24 Anion Gap 18 BUN 13 Creatinine 0.8 Est GFR ( Amer) > 60 Est GFR (Non-Af Amer) > 60 POC Glucose (mg/dL) 112 H Random Glucose 112 H Calcium 9.4 Total Bilirubin 0.5 AST 22 ALT 40 Alkaline Phosphatase 144 H Total Protein 7.8 Albumin 4.2 Globulin 3.6 Albumin/Globulin Ratio 1.2 Lipase 89 Urine Color Urine Clarity Urine pH Ur Specific [place] Urine Protein Urine Glucose (UA) Urine Ketones Urine Blood Urine Nitrate Urine Bilirubin Urine Urobilinogen Ur Leukocyte Esterase Urine RBC (Auto) Urine Microscopic WBC Ur Squamous Epith Cells Ur Yeast w Hyphae 01/10/18 20:09 WBC RBC Hgb Hct MCV MCH MCHC RDW Plt Count MPV Neut % (Auto) Lymph % (Auto) [place] % (Auto) Eos % (Auto) Baso % (Auto) Neut # (Auto) Lymph # (Auto) [place] # (Auto) Eos # (Auto) Baso # (Auto) Sodium Potassium Chloride Carbon Dioxide Anion Gap BUN Creatinine Est GFR ( Amer) Est GFR (Non-Af Amer) POC Glucose (mg/dL) Random Glucose Calcium Total Bilirubin AST ALT Alkaline Phosphatase Total Protein Albumin Globulin Albumin/Globulin Ratio Lipase Urine Color Aggie Urine Clarity Cloudy Urine pH 5.0 Ur Specific [place] 1.032 H Urine Protein 100 Urine Glucose (UA) Neg Urine Ketones Negative Urine Blood Negative Urine Nitrate Negative Urine Bilirubin Small Urine Urobilinogen 2.0 H Ur Leukocyte Esterase Trace Urine RBC (Auto) 2 Urine Microscopic WBC 2 Ur Squamous Epith Cells 25 H Ur Yeast w [place]phae Few H Assessment & Plan - Assessment and Plan (Free Text) Assessment: 52 yo F w/ HTN, DM, presenting with abdominal pain, Nausea/Vomiting, Diarrhea -Afebrile, No Leukocytosis -CT reviewed, consistent w/ colitis/ileitis, appendix mildly dilated and fluid filled, no fat stranding or wall enhancement -Abdominal exam with no peritoneal signs -History and Physical inconsistent with appendicitis -Clear for DC from surgical standpoint with supportive care for colitis/ enteritis -Discussed with patient and family members at bedside the CT findings and possible signs of appendicitis, patient agreeable to return to hospital if any localized RLQ pain or worsening symptoms develop DW Dr Jolanta Way PGY4
[2018-01-10 23:31] VITALS: BP 120/71; PULSE 75; RESP 16; TEMP 99; O2SAT 95
--- NOTE | 2018-01-11 10:22 | CT ---
Date of service: 01/10/2018 PROCEDURE: CT Abdomen and Pelvis with contrast HISTORY: diffuse abd pain, worse in epig, fever/n/v/d COMPARISON: None. TECHNIQUE: Contrast dose: 95 cc Omnipaque 300 Radiation dose: Total exam DLP = 974.92 mGy-cm. This CT exam was performed using one or more of the following dose reduction techniques: Automated exposure control, adjustment of the mA and/or kV according to patient size, and/or use of iterative reconstruction technique. FINDINGS: LOWER THORAX: Unremarkable. LIVER: Hepatic steatosis. No focal masses. No intrahepatic bile duct dilatation or perihepatic ascites. GALLBLADDER AND BILE DUCTS: Unremarkable. PANCREAS: Unremarkable. No gross lesion or ductal dilatation. SPLEEN: Unremarkable. ADRENALS: Unremarkable. No mass. KIDNEYS AND URETERS: Unremarkable. No hydronephrosis. No solid mass. VASCULATURE: Unremarkable. No aortic aneurysm. BOWEL: Mucosal thickening, dilatation of the distal ileum extending to the ileocecal valve region consistent with infectious/inflammatory ileitis. No evidence of mechanical obstruction. APPENDIX: Mildly dilated containing a solitary optic collapsed. PERITONEUM: Unremarkable. No free fluid. No free air. LYMPH NODES: Unremarkable. No enlarged lymph nodes. BLADDER: Unremarkable. REPRODUCTIVE: Unremarkable. BONES: Mildly dilated. OTHER FINDINGS: None. IMPRESSION: Enteritis/ileitis. The findings do not extend to the colon. No evidence of mechanical obstruction. Additional benign and/or incidental findings described above. Concordant results (preliminary interpretation) provided by [facility]. Procedure Completed: 21:10. Preliminary ([facility]) Report: Dictated and Authenticated: 22:07. Final Interpretation: 10:20 January 11, 2018.
--- NOTE | 2018-01-13 16:39 | CARD ---
APPROVED REPORT Date of service: 01/10/2018 EKG Measurement Heart [id number] [id number] <Conclusion> Normal sinus rhythm Possible Left atrial enlargement Cannot rule out Inferior infarct, age undetermined Abnormal ECG
== END 2018-01-10 23:15 | disposition home or self-care (01) ==
LOC: H.ER 17:56
DX: K52.9 Noninfective gastroenteritis and colitis, unspecified (principal); E11.9 Type 2 diabetes mellitus without complications; E78.00 Pure hypercholesterolemia, unspecified; I10 Essential (primary) hypertension; Z79.4 Long term (current) use of insulin; Z79.82 Long term (current) use of aspirin; Z82.49 Family history of ischemic heart disease and other diseases of the circulatory system; Z86.59 Personal history of other mental and behavioral disorders; I25.10 Atherosclerotic heart disease of native coronary artery without angina pectoris
CPT/HCPCS: 74177; 80053; 81003; 82948; 83690; 85025; 93005; 96365; 96375; 99284; J2765; J7030; Q9967